=== PATIENT | female | born 1975 | race Asian ===

== ENCOUNTER 2024-06-11 07:58 | Emergency (ER) | payer OTHER ==
[~2024-06-11] VITALS: Ht 162.6 cm; Wt 70.5 kg
[2024-06-11 08:27] VITALS: TEMP 97.8
[2024-06-11 08:55] VITALS: BP 137/77
[2024-06-11 09:23] VITALS: PULSE 106; RESP 16
== END 2024-06-11 09:58 | disposition home or self-care (01) ==
LOC: EMS 07:58
DX: K02.9 Dental caries, unspecified (principal)
CPT/HCPCS: 99282; Z7502

== ENCOUNTER 2025-03-13 08:23 | Emergency (ER) | payer OTHER ==
[~2025-03-13] VITALS: Ht 149.9 cm; Wt 70.5 kg
[2025-03-13] MEDS ORDERED: IBUP-45 PO (08:30)
[2025-03-13] MEDS ORDERED: CETI-450 PO (08:30)
[2025-03-13 08:33] VITALS: BP 132/97; PULSE 73; RESP 18; TEMP 96.9; O2SAT 100
[2025-03-13] MEDS ORDERED: MOXI3DRO25 OD (08:59)
== END 2025-03-13 09:08 | disposition home or self-care (01) ==
LOC: EMS 08:26
DX: H10.89 Other conjunctivitis (principal); Z79.899 Other long term (current) drug therapy
CPT/HCPCS: 99283; Z7502